=== PATIENT | female | born 2000 | race Hispanic/Latino ===

== ENCOUNTER 2022-07-05 21:20 | Emergency (ER) | payer OTHER ==
[~2022-07-05] VITALS: Ht 162.6 cm; Wt 111.1 kg
[2022-07-05 21:48] LABS: BASOPHILS % (AUTO) 0.3 % (0.0-5.0); EOSINOPHILS % (AUTO) 1.7 % (0.0-8.0); HEMATOCRIT 37.8 % (36-48); LYMPHOCYTES % (AUTO) 32.8 % (21.0-51.0); MEAN CORPUSCULAR HEMOGLOBIN 28.8 pg (27.0-33.0); MEAN CORPUSCULAR HGB CONC 33.6 g/dL (32.0-36.0); MEAN CORPUSCULAR VOLUME 85.7 fL (79-99); MONOCYTES % (AUTO) 7.1 % (3.0-13.0); NEUTROPHILS % (AUTO) 57.5 % (40.0-77.0); PLATELET COUNT (AUTO) 351 K/uL (130-400); RED BLOOD CELL COUNT(AUTO) 4.41 MIL/uL (4.00-5.50); RED CELL DISTRIBUTION WIDTH 12.6 % (11.0-15.5); WHITE BLOOD COUNT (AUTO) 11.5 K/uL (4.8-10.8)
[2022-07-05] MEDS ORDERED: ONDANSETRON 4MG INJ ONE (21:50)
[2022-07-05] MEDS ORDERED: 0.9%NACL 1000ML 1,000 ML IV ONE (21:50)
[2022-07-05 21:54] LABS: APPEARANCE,URINE CLOUDY (CLEAR); BILIRUBIN,URINE NEGATIVE (NEGATIVE); COLOR,URINE LIGHT-YELLOW (YELLOW); GLUCOSE, URINE (UA) NEGATIVE (NEGATIVE); KETONES,URINE NEGATIVE (NEGATIVE); LEUKOCYTE ESTERASE ,URINE NEGATIVE Leu/uL (NEGATIVE); NITRATE,URINE NEGATIVE (NEGATIVE); OCCULT BLOOD,URINE NEGATIVE (NEGATIVE); PROTEIN,URINE NEGATIVE (NEGATIVE)
[2022-07-05 21:58] LABS: HCG,QUALITATIVE URINE NEGATIVE (NEGATIVE)
[2022-07-05 22:01] LABS: CREATININE 0.7 mg/dL (0.5-1.5); POTASSIUM 3.8 mmol/L (3.5-5.1)
[2022-07-05 22:05] LABS: ALBUMIN 3.9 g/dL (3.5-5.0)
[2022-07-05] MEDS ORDERED: KETOROLAC 15MG/ML VIAL (15MG/ML) ONE (22:21)
[2022-07-05] MEDS ORDERED: KETOROLAC 15MG/ML VIAL (15MG/ML) IV ONE (22:30)
[2022-07-05] MEDS ORDERED: DICY10 PO (23:28)
[2022-07-05] MEDS ORDERED: IBUP-2070 PO (23:28)
[2022-07-05 23:42] VITALS: BP 115/66
== END 2022-07-05 23:54 | disposition home or self-care (01) ==
LOC: EDH 21:20
DX: K80.70 Calculus of gallbladder and bile duct without cholecystitis without obstruction (principal); Z79.1 Long term (current) use of non-steroidal anti-inflammatories (NSAID)
CPT/HCPCS: 99284; 96374; 76705; 96361; 96375; 80053; 83690; 85025; 81003; 81025; 36415; J7030; J2405; J1885

== ENCOUNTER 2024-02-03 16:30 | Emergency (ER) | payer OTHER ==
[~2024-02-03] VITALS: Ht 165.1 cm; Wt 114.3 kg
[~2024-02-03 16:30] MED LIST: DICY10 PO; IBUP-2070 PO
[2024-02-03 16:38] VITALS: BP 136/77; PULSE 77; RESP 16
[2024-02-03 16:55] LABS: BASOPHILS # (AUTO) 0.04 K/uL (0.00-0.20); BASOPHILS % (AUTO) 0.4 % (0.0-5.0); EOSINOPHILS # (AUTO) 0.19 K/uL (0.00-0.70); EOSINOPHILS % (AUTO) 1.7 % (0.0-8.0); HEMATOCRIT 42.4 % (36-48); IMMATURE GRANULOCYTE ABSOLUTE 0.05 K/uL (0-1); LYMPHOCYTES # (AUTO) 2.6 K/uL (1.0-4.8); LYMPHOCYTES % (AUTO) 23.3 % (21.0-51.0); MEAN CORPUSCULAR HEMOGLOBIN 29.2 pg (27.0-33.0); MEAN CORPUSCULAR HGB CONC 33.7 g/dL (32.0-36.0); MEAN CORPUSCULAR VOLUME 86.5 fL (79-99); MONOCYTES # (AUTO) 0.8 K/uL (0.1-1.0); MONOCYTES % (AUTO) 6.8 % (3.0-13.0); NEUTROPHILS # (AUTO) 7.5 K/uL (1.8-7.7); NEUTROPHILS % (AUTO) 67.3 % (40.0-77.0); PLATELET COUNT (AUTO) 383 K/uL (130-400); RED CELL DISTRIBUTION WIDTH 12.9 % (11.0-15.5); WHITE BLOOD COUNT (AUTO) 11.1 K/uL (4.8-10.8)
[2024-02-03 17:04] LABS: CREATININE 0.8 mg/dL (0.5-1.0); POTASSIUM 3.7 mmol/L (3.5-5.1)
[2024-02-03 17:08] LABS: BILIRUBIN,TOTAL 0.3 mg/dL (0.2-1.0); TOTAL PROTEIN, SERUM 7.9 g/dL (6.0-8.3)
[2024-02-03] MEDS: DICYCLOMINE HCL 10 MG/5 ML ML PO ONE (19:46)
[2024-02-03] MEDS: MAG/ALUM/SIMETH 30 ML UDCUP PO ONE (19:46)
[2024-02-03] MEDS: LIDOCAINE HCL 2% VISCOUS 15 ML UDCUP PO ONE (19:47)
[2024-02-03] MEDS: ONDANSETRON 4MG INJ IVP ONE (19:47)
[2024-02-03 20:07] LABS: APPEARANCE,URINE SL CLOUDY (CLEAR); BILIRUBIN,URINE NEGATIVE (NEGATIVE); COLOR,URINE YELLOW (YELLOW); GLUCOSE, URINE (UA) NEGATIVE (NEGATIVE); KETONES,URINE 5 mg/dL (NEGATIVE); LEUKOCYTE ESTERASE ,URINE NEGATIVE Leu/uL (NEGATIVE); NITRATE,URINE NEGATIVE (NEGATIVE); OCCULT BLOOD,URINE NEGATIVE (NEGATIVE); PH,URINE 6.5 (5.0-8.0); PROTEIN,URINE NEGATIVE (NEGATIVE); UROBILINOGEN,URINE 0.2 mg/dL (0.2-1.0)
[2024-02-03] MEDS: PANTOPRAZOLE 40 MG/VIAL IVP ONE (20:14)
[2024-02-03 20:15] LABS: HCG,QUALITATIVE URINE NEGATIVE (NEGATIVE)
[2024-02-03 20:20] LABS: ADD UA MICROSCOPIC YES
[2024-02-03 20:33] LABS: BACTERIA,URINE Rare /HPF (None Seen); RBC,URINE None Seen /HPF (0-1); SQUAMOUS EPITHELIAL CELL,UR Few /HPF (0-2)
== END 2024-02-03 21:37 | disposition home or self-care (01) ==
LOC: EDH 16:30
DX: K80.50 Calculus of bile duct without cholangitis or cholecystitis without obstruction (principal); R11.2 Nausea with vomiting, unspecified; K80.70 Calculus of gallbladder and bile duct without cholecystitis without obstruction; Z90.49 Acquired absence of other specified parts of digestive tract
CPT/HCPCS: 99285; 96374; 76705; 96375; 80053; 83690; 85025; 81001; 81025; 36415; J2405; C9113

== ENCOUNTER 2024-05-25 22:46 | Emergency (ER) | payer SELFPAY ==
[~2024-05-25] VITALS: Ht 165.1 cm; Wt 117.9 kg
[2024-05-25 23:07] LABS: APPEARANCE,URINE CLEAR (CLEAR); BILIRUBIN,URINE NEGATIVE (NEGATIVE); COLOR,URINE YELLOW (YELLOW); GLUCOSE, URINE (UA) NEGATIVE (NEGATIVE); KETONES,URINE NEGATIVE (NEGATIVE); LEUKOCYTE ESTERASE ,URINE NEGATIVE Leu/uL (NEGATIVE); NITRATE,URINE NEGATIVE (NEGATIVE); OCCULT BLOOD,URINE NEGATIVE (NEGATIVE); PH,URINE 6.5 (5.0-8.0); PROTEIN,URINE NEGATIVE (NEGATIVE); UROBILINOGEN,URINE 6 mg/dL (0.2-1.0)
[2024-05-25 23:08] LABS: ADD UA MICROSCOPIC YES
[2024-05-25 23:10] LABS: BACTERIA,URINE RARE /HPF (None Seen); MUCUS,URINE RARE LPF (None Seen); RBC,URINE 0-1 /HPF (0-1); SQUAMOUS EPITHELIAL CELL,UR RARE /HPF (0-2)
[2024-05-25] MEDS: 0.9%NACL 1000ML 1,000 ML IV ONE (23:29)
[2024-05-25] MEDS: ONDANSETRON 4MG INJ IVP ONE (23:29)
[2024-05-25] MEDS: FAMOTIDINE 20MG VIAL IV ONE (23:29)
[2024-05-25 23:30] LABS: BASOPHILS # (AUTO) 0.05 K/uL (0.00-0.20); BASOPHILS % (AUTO) 0.3 % (0.0-5.0); EOSINOPHILS # (AUTO) 0.24 K/uL (0.00-0.70); EOSINOPHILS % (AUTO) 1.6 % (0.0-8.0); HEMATOCRIT 39.3 % (36-48); IMMATURE GRANULOCYTE ABSOLUTE 0.09 K/uL (0-1); LYMPHOCYTES # (AUTO) 3.9 K/uL (1.0-4.8); LYMPHOCYTES % (AUTO) 25.7 % (21.0-51.0); MEAN CORPUSCULAR HEMOGLOBIN 29.5 pg (27.0-33.0); MEAN CORPUSCULAR HGB CONC 34.1 g/dL (32.0-36.0); MEAN CORPUSCULAR VOLUME 86.4 fL (79-99); MONOCYTES # (AUTO) 0.7 K/uL (0.1-1.0); MONOCYTES % (AUTO) 4.8 % (3.0-13.0); NEUTROPHILS # (AUTO) 10.2 K/uL (1.8-7.7); PLATELET COUNT (AUTO) 415 K/uL (130-400); RED BLOOD CELL COUNT(AUTO) 4.55 MIL/uL (4.00-5.50); WHITE BLOOD COUNT (AUTO) 15.3 K/uL (4.8-10.8)
[2024-05-25 23:42] LABS: CREATININE 0.7 mg/dL (0.5-1.0); POTASSIUM 3.3 mmol/L (3.5-5.1)
[2024-05-25 23:46] LABS: ALBUMIN 3.9 g/dL (3.5-5.0); BILIRUBIN,TOTAL 1.1 mg/dL (0.2-1.0); TOTAL PROTEIN, SERUM 7.9 g/dL (6.0-8.3)
[2024-05-26] MEDS: MORPHINE 2 MG SYG IVP ONE ×2 (00:44→02:20)
[2024-05-26] MEDS: KETOROLAC 30MG VIAL (30MG/ML) IVP ONE (00:44)
[2024-05-26] MEDS ORDERED: IOHEXOL 350 MG/ML 100ML INFUS..BTL IV ONE (00:48)
[2024-05-26] MEDS ORDERED: KETO10TA2 PO (02:02)
[2024-05-26] MEDS ORDERED: FAMO-136 PO (02:02)
[2024-05-26] MEDS ORDERED: ONDA-243 PO (02:02)
[2024-05-26 02:23] VITALS: BP 138/85; PULSE 68; RESP 20; O2SAT 98
== END 2024-05-26 02:46 | disposition home or self-care (01) ==
LOC: EDH 22:46
DX: K80.20 Calculus of gallbladder without cholecystitis without obstruction (principal); K80.50 Calculus of bile duct without cholangitis or cholecystitis without obstruction; Z79.899 Other long term (current) drug therapy; Z98.890 Other specified postprocedural states
CPT/HCPCS: 99285; 74177; 96374; 96375 ×2; 80053; 84703; 83690; 85025; 81001; 36415; 96376; J3490; J7030; J2405; J2270 ×2; J1885; Q9967